=== PATIENT | male | born 1990 | race African-American/Black ===

== ENCOUNTER 2016-12-24 11:44 | Emergency (ER) | payer OTHER, MEDICAID ==
[~2016-12-24] VITALS: Ht 190.5 cm; Wt 85.3 kg
[2016-12-24] MEDS ORDERED: ceFAZolin SOD 1 GM in D5W MINI-BAG PLUS 50 ML IV ONE (12:15)
[2016-12-24 13:24] LABS: BASO % 0.6 % (0.0-1.0); EOS # 0.1 K/mm3 (0.0-0.50); EOS % 1.9 % (0.0-3.0); LARGE UNSTAINED CELL # 0.1 K/mm3 (0.0-0.4); LARGE UNSTAINED CELL % 2.7 % (0.0-4.0); LYMPH # 1.7 K/mm3 (1.5-6.5); LYMPH % 38.1 % (24.0-44.0); MEAN CORPUSCULAR HEMOGLOBIN 28.5 pg (27.0-33.0); MEAN CORPUSCULAR HGB CONC 33.1 g/dl (32.0-36.5); MEAN CORPUSCULAR VOLUME 86.3 fl (80.0-96.0); MONO # 0.3 K/mm3 (0.0-0.8); MONO % 7.5 % (0.0-5.0); NEUTROPHILS # 2.2 K/mm3 (1.8-7.7); NEUTROPHILS % 49.3 % (36.0-66.0); PLATELET COUNT, AUTOMATED 254 k/mm3 (150-450); RED CELL DISTRIBUTION WIDTH 12.7 % (11.5-14.5); WHITE BLOOD COUNT 4.4 K/mm3 (4.0-10.0)
[2016-12-24] MEDS ORDERED: KEFL500C7 PO (13:53)
[2016-12-24] MEDS ORDERED: IBUP80TA PO (13:53)
[2016-12-24 14:00] VITALS: BP 124/69
== END 2016-12-24 14:27 | disposition home or self-care (01) ==
LOC: M ED 13:28
DX: L03.116 Cellulitis of left lower limb (principal); S71.112A Laceration without foreign body, left thigh, initial encounter; W26.0XXA Contact with knife, initial encounter; Y92.89 Other specified places as the place of occurrence of the external cause; Y93.89 Activity, other specified; Y99.8 Other external cause status; F17.200 Nicotine dependence, unspecified, uncomplicated
CPT/HCPCS: 85025; 87040; 99283; J0690

== ENCOUNTER 2017-01-25 11:58 | Emergency (ER) | payer MEDICAID, OTHER ==
[~2017-01-25] VITALS: Ht 190.5 cm; Wt 85.3 kg
[~2017-01-25 11:58] MED LIST: IBUP80TA PO; KEFL500C7 PO
[2017-01-25] MEDS ORDERED: VALA500T PO (12:07)
[2017-01-25] MEDS ORDERED: AMOX875T PO (14:59)
[2017-01-25] MEDS ORDERED: FLON1SPR (14:59)
[2017-01-25 15:11] VITALS: BP 145/88
--- NOTE | 2017-01-26 06:25 | REP ---
Productive cough. Comparison frontal view obtained as part of an abdominal series on 10/30/2014. FINDINGS: The superior mediastinal structures are midline. The cardiac silhouette is unremarkable in size, shape, and position. The diaphragmatic surfaces of the lungs are regular, and the costophrenic angles are clear. The pulmonary magana are clear. The imaged osseous structures are intact. IMPRESSION: There is no acute cardiopulmonary disease. Signed by Florencio Card DO 01/26/2017 03:40 P
== END 2017-01-25 15:25 | disposition home or self-care (01) ==
LOC: M ED 13:32
DX: J06.9 Acute upper respiratory infection, unspecified (principal)

== ENCOUNTER 2019-11-28 04:47 | Emergency (ER) | payer OTHER ==
[~2019-11-28] VITALS: Ht 188 cm; Wt 88.6 kg
[~2019-11-28 04:47] MED LIST changes: +AMOX875T PO; +FLON1SPR; +KEFL500C17 PO; -KEFL500C7 PO; +VALA500T5 PO
[2019-11-28] MEDS ORDERED: CYCL5TAB PO (04:52)
[2019-11-28] MEDS ORDERED: MELA5CAP2 PO (04:52)
[2019-11-28] MEDS ORDERED: BP MEDICATION (04:52)
[2019-11-28] MEDS ORDERED: MOBI4TAB PO (04:52)
[2019-11-28 06:57] LABS: BASO % 0.7 % (0.0-1.0); EOS # 0.1 10^3/uL (0.0-0.5); EOS % 2.7 % (0.0-3.0); HEMATOCRIT 44.4 % (42.0-52.0); HEMOGLOBIN 14.4 g/dl (13.5-17.5); LYMPH # 1.2 10^3/uL (1.5-5.0); LYMPH % 30.5 % (24.0-44.0); MEAN CORPUSCULAR HEMOGLOBIN 28.1 pg (27.0-33.0); MEAN CORPUSCULAR HGB CONC 32.4 g/dl (32.0-36.5); MEAN CORPUSCULAR VOLUME 86.5 fl (80.0-96.0); MONO # 0.4 10^3/uL (0.0-0.8); MONO % 10.6 % (0.0-5.0); NEUTROPHILS # 2.3 10^3/uL (1.5-8.5); NEUTROPHILS % 55.3 % (36.0-66.0); PLATELET COUNT, AUTOMATED 259 10^3/uL (150-450); RED BLOOD COUNT 5.13 10^6/uL (4.30-6.10); WHITE BLOOD COUNT 4.1 10^3/uL (4.0-10.0)
[2019-11-28 07:36] LABS: BLOOD UREA NITROGEN 16 MG/DL (7-18); CALCIUM LEVEL 9.1 MG/DL (8.5-10.1); CARBON DIOXIDE LEVEL 30 MEQ/L (21-32); CHLORIDE LEVEL 110 MEQ/L (98-107); CREATININE FOR GFR 0.91 MG/DL (0.70-1.30); GLOMERULAR FILTRATION RATE > 60.0 (>60); GLUCOSE, FASTING 103 MG/DL (70-100); MAGNESIUM LEVEL 2.2 MG/DL (1.8-2.4); POTASSIUM SERUM 4.4 MEQ/L (3.5-5.1); SODIUM LEVEL 144 MEQ/L (136-145); THYROID STIMULATING HORMONE 0.902 uIU/ML (0.358-3.740)
--- NOTE | 2019-11-28 07:53 | REP ---
Clinical: Chest pain and palpitations . Comparison: 01/25/2017 . Findings: The mediastinum and cardiac silhouette are stable and within normal limits for portable technique. The lung magana are clear without acute consolidation, effusion, or pneumothorax. Skeletal structures are intact. Impression: No acute cardiopulmonary process appreciated. Electronically Signed by Jose High MD 11/28/2019 07:44 A
[2019-11-28 07:57] VITALS: BP 131/93
--- NOTE | 2019-11-28 08:38 | ECGEPIP ---
[facility] - ED Test Date: 2019-11-28 Pat Name: TAMIKO RICO Department: Room: - Gender: Male Manager Of Network: [place] : 1990 Requested By: NACHO Inman Order Number: [id number] Reading MD: Deandra Shipley Measurements Intervals [place] Rate: 66 P: 77 [place]: 199 QRS: 46 QRSD: 104 T: 34 QT: 370 QTc: 390 Interpretive Statements SINUS RHYTHM POSSIBLE LEFT ATRIAL ENLARGEMENT POSSIBLE RIGHT VENTRICULAR CONDUCTION DELAY SIMILAR 10/30/14 Electronically Signed on 11-28-2019 8:38:09 EST by Deandra Shipley
[2019-11-28 09:02] LABS: AMPHETAMINES LEVEL URINE NEGATIVE (NEGATIVE); BARBITURATES URINE NEGATIVE (NEGATIVE); BENZODIAZEPINES URINE NEGATIVE (NEGATIVE); CANNABINOIDS URINE POSITIVE (NEGATIVE); COCAINE METABOLITE URINE NEGATIVE (NEGATIVE); METHADONE URINE NEGATIVE (NEGATIVE); OPIATES URINE NEGATIVE (NEGATIVE); PHENCYCLIDINE URINE NEGATIVE (NEGATIVE)
== END 2019-11-28 08:34 | disposition home or self-care (01) ==
LOC: M ED 04:47
DX: R00.2 Palpitations (principal); F17.290 Nicotine dependence, other tobacco product, uncomplicated; Z79.899 Other long term (current) drug therapy

== ENCOUNTER → 2022-08-28 | Outpatient (CLI) | payer OTHER ==
[~2022-08-28] MED LIST changes: +BP MEDICATION; +CYCL5TAB PO; +MELA5CAP2 PO; +MOBI4TAB PO
[2022-08-28 14:02] LABS: HEMOGLOBIN A1c 5.5 % (4.0-6.0)
[2022-08-28 14:28] LABS: ALBUMIN 4.2 G/DL (3.2-5.2); ALT/SGPT 97 U/L (7.0-40); BILIRUBIN,TOTAL 0.5 MG/DL (0.3-1.2); BLOOD UREA NITROGEN 13 MG/DL (9-23); CALCIUM LEVEL 10.4 MG/DL (8.5-10.1); CARBON DIOXIDE LEVEL 33 MMOL/L (20-31); CHLORIDE LEVEL 102 MMOL/L (98-107); CREATININE FOR GFR 0.93 MG/DL (0.70-1.30); GLOMERULAR FILTRATION RATE > 60.0 (>60); GLUCOSE, FASTING 86 MG/DL (60-100); HEPATITIS C VIRUS ABY INDEX 0.1 INDEX (<0.8); HIV 1&2 SCREEN CENTAUR NEGATIVE (NEGATIVE); POTASSIUM SERUM 3.9 MMOL/L (3.5-5.1); SODIUM LEVEL 140 MMOL/L (136-145); TOTAL PROTEIN 7.2 G/DL (5.7-8.2)
== END ==
LOC: M PLALAB 10:42
PROVIDERS: ATTEND Family Medicine
DX: M54.50 Low back pain, unspecified (principal); I10 Essential (primary) hypertension; Z11.9 Encounter for screening for infectious and parasitic diseases, unspecified; Z13.1 Encounter for screening for diabetes mellitus

== ENCOUNTER → 2022-10-15 | Outpatient (REF) | payer OTHER, MEDICAID | LOC: M LAB REF 12:26 | PROVIDERS: ATTEND Physician Assistant | DX: R05.9 Cough, unspecified (principal) ==

== ENCOUNTER → 2023-07-15 | Outpatient (REF) | payer OTHER, MEDICAID | LOC: M LAB REF 15:59 | PROVIDERS: ATTEND Physician Assistant | DX: B34.9 Viral infection, unspecified (principal) ==

== ENCOUNTER → 2023-08-17 | Outpatient (CLI) | payer OTHER ==
[2023-08-17 14:28] LABS: HEMOGLOBIN A1c 5.4 % (4.0-6.0)
[2023-08-17 14:50] LABS: ALBUMIN 3.8 G/DL (3.2-5.2); ALKALINE PHOSPHATASE 110 U/L (46-116); ALT/SGPT 69 U/L (7.0-40); AST/SGOT 37 U/L (<34); BILIRUBIN,TOTAL 0.4 MG/DL (0.3-1.2); BLOOD UREA NITROGEN 15 MG/DL (9-23); CALCIUM LEVEL 9.3 MG/DL (8.5-10.1); CARBON DIOXIDE LEVEL 30 MMOL/L (20-31); CHLORIDE LEVEL 106 MMOL/L (98-107); CREATININE FOR GFR 0.97 MG/DL (0.70-1.30); GLOMERULAR FILTRATION RATE > 60.0 (>60); GLUCOSE, FASTING 93 MG/DL (60-100); POTASSIUM SERUM 4.2 MMOL/L (3.5-5.1); SODIUM LEVEL 142 MMOL/L (136-145); TOTAL PROTEIN 6.7 G/DL (5.7-8.2)
[2023-08-17 14:54] LABS: VITAMIN B12 LEVEL 867 PG/ML (211-911)
== END ==
LOC: M PLALAB 09:53
PROVIDERS: ATTEND Family Medicine
DX: I10 Essential (primary) hypertension (principal); R74.01 Elevation of levels of liver transaminase levels; E83.52 Hypercalcemia; R73.03 Prediabetes; W18.49XD Other slipping, tripping and stumbling without falling, subsequent encounter

== ENCOUNTER → 2024-06-22 | Outpatient (REF) | payer OTHER | LOC: M LAB REF 12:17 | PROVIDERS: ATTEND Physician Assistant Medical | DX: B34.9 Viral infection, unspecified (principal) ==

== ENCOUNTER → 2024-08-02 | Outpatient (REF) | payer OTHER | LOC: M LAB REF 12:52 | PROVIDERS: ATTEND Physician Assistant | DX: B34.9 Viral infection, unspecified (principal) ==

== ENCOUNTER 2024-09-20 08:41 | Emergency (ER) | payer OTHER ==
[~2024-09-20] VITALS: Ht 193 cm; Wt 88.8 kg
[~2024-09-20 08:41] MED LIST changes: -AMLO1TAB24
[2024-09-20 08:47] VITALS: BP 135/90; TEMP 97.1; O2SAT 98
[2024-09-20] MEDS ORDERED: AMLO1TAB24 (08:47)
== END 2024-09-20 11:05 | disposition left against medical advice (07) ==
LOC: M ED 08:41
DX: Z53.21 Procedure and treatment not carried out due to patient leaving prior to being seen by health care provider (principal)

== ENCOUNTER → 2024-09-20 | Outpatient (CLI) | payer OTHER ==
[~2024-09-20] MED LIST changes: +AMLO1TAB24; -CYCL5TAB PO; +CYCL5TAB4 PO
== END ==
LOC: M RAD 11:53
PROVIDERS: ATTEND Physician Assistant
DX: M54.2 Cervicalgia (principal); M54.50 Low back pain, unspecified

== ENCOUNTER → 2024-10-19 | Outpatient (REF) | payer OTHER ==
[~2024-10-19] MED LIST changes: +AMLO1TAB24
[2024-10-19 11:53] LABS: SEMEN APPEARANCE OPAQUE (OPAQUE); SEMEN VISCOSITY LIQUID (LIQUID); SEMEN VOLUME 0.9 ml (2.0-5.0); SEMEN pH 8.5 (7.0-8.0); WBC CONCENTRATION >1 M/ml (<=1 M/ml)
== END ==
LOC: M LAB REF 10:28
PROVIDERS: ATTEND Family Medicine
DX: Z30.2 Encounter for sterilization (principal)

== ENCOUNTER 2024-11-02 08:56 | Emergency (ER) | payer OTHER ==
[~2024-11-02] VITALS: Ht 190.5 cm; Wt 97.0 kg
[2024-11-02] MEDS: methocarbamoL 750 MG TAB PO ONE (12:55)
[2024-11-02] MEDS: KETOROLAC 60MG 2ML VIAL IM ONE (12:56)
[2024-11-02] MEDS ORDERED: MELO15TA28 PO (13:54)
[2024-11-02] MEDS ORDERED: METH-1165 PO (13:54)
[2024-11-02 14:07] VITALS: BP 146/93; TEMP 98; O2SAT 100
== END 2024-11-02 14:09 | disposition home or self-care (01) ==
LOC: M ED 08:56
DX: M62.830 Muscle spasm of back (principal); I10 Essential (primary) hypertension
CPT/HCPCS: 72110; 96372; 99283; J1885

== ENCOUNTER 2024-12-04 17:20 | Emergency (ER) | payer OTHER ==
[~2024-12-04] VITALS: Ht 190.5 cm; Wt 81.0 kg
[~2024-12-04 17:20] MED LIST changes: +MELO15TA28 PO; +METH-1165 PO
[2024-12-04] MEDS: ACETAMINOPHEN 500 MG TAB PO ONE (20:46)
[2024-12-04] MEDS: diazePAM 5MG TABLET PO ONE (20:46)
[2024-12-04] MEDS: KETOROLAC 30 MG/ML 1ML VIAL IM ONE (20:46)
[2024-12-04 20:47] VITALS: BP 112/73; TEMP 97.4; O2SAT 100
[2024-12-04] MEDS ORDERED: TIZA4CAP PO (21:03)
== END 2024-12-04 21:11 | disposition home or self-care (01) ==
LOC: M ED 17:20
DX: M46.1 Sacroiliitis, not elsewhere classified (principal); I10 Essential (primary) hypertension; Z79.899 Other long term (current) drug therapy
CPT/HCPCS: 73502; 96372; 99283; J1885

== ENCOUNTER → 2025-09-23 | Outpatient (REF) | payer OTHER ==
[~2025-09-23] MED LIST changes: +TIZA4CAP PO
== END ==
LOC: M LAB REF 06:54
DX: R19.7 Diarrhea, unspecified (principal); A04.72 Enterocolitis due to Clostridium difficile, not specified as recurrent